=== PATIENT | male | born 1980 | race Caucasian/White ===

== ENCOUNTER → 2016-10-06 | Outpatient (CLI) | payer OTHER | END | disposition home or self-care (01) | LOC: C.PATH 17:29 | PROVIDERS: ATTEND Urology | DX: Z30.2 Encounter for sterilization (principal) ==

== ENCOUNTER → 2016-11-10 | Outpatient (CLI) | payer OTHER | END | disposition home or self-care (01) | LOC: C.LABSPEC 16:54 | PROVIDERS: ATTEND Urology | DX: R30.0 Dysuria (principal) ==